=== PATIENT | female | born 1970 | race American Indian/Alaskan Native ===

== ENCOUNTER 2017-08-24 19:38 | Emergency (ER) | payer OTHER ==
[2017-08-24 19:59] VITALS: PULSE 67
[2017-08-24] MEDS ORDERED: Albuterol 0.083% Inhal Sol (2.5 mg/3 mL) UD IH STA (20:24)
--- NOTE | 2017-08-24 20:26 | C.PDOC ---
History Of Present Illness 47 yo female w/o significant PMHx, smoker, come in for evaluation of itchy eyes , post-nasal drip, dry cough " lungs irritation" gradually developed for past 2 days ' after was exposed to fiberglass from my mattress when I took of cover to clean". Pt sts, inhaled some fiberglass and since then developed above symptoms. Otherwise, pt denies fever, chills headache, dizziness, eye discharges or blurry vision, CP, SOB, dyspnea, wheezing, abd. pain, N/V. Ambulate to Ed for evaluation, not in any apparent distress. Time Seen by Provider: 08/24/17 20:02 Chief Complaint (Nursing): Medical Clearance Past Medical History Vital Signs: Last Vital Signs Temp 98.5 F 08/24/17 19:55 Pulse 67 08/24/17 19:55 Resp 20 08/24/17 19:55 BP 130/83 08/24/17 19:55 Pulse Ox 100 08/24/17 21:01 Surgical History: No Surg Hx Family History: States: No Known Family Hx - Social History Hx Tobacco Use: Yes Hx Alcohol Use: No Hx Substance Use: No - Immunization History Hx Tetanus Toxoid Vaccination: No Hx Influenza Vaccination: No Hx Pneumococcal Vaccination: No Physical Exam - Physical Exam Appears: Well, Non-toxic, No Acute Distress Skin: Normal Color, Warm, No Rash Head: Normacephalic Eye(s): bilateral: PERRL, EOMI (o pain or limitation on extraocular movement B/L ), Other (no conjunctival injection or periorbital edema.) Ear(s): Bilateral: Normal Nose: No Flaring, No Discharge Oral Mucosa: Moist Tongue: No Swelling Lips: No Swelling Throat: No Drooling Neck: Trachea Midline, Supple Chest: Symmetrical Cardiovascular: Rhythm Regular Respiratory: No Decreased Breath Sounds, No Accessory Muscle Use, No Rales, No Rhonchi, No Stridor, No Wheezing Gastrointestinal/Abdominal: Soft Extremity: Normal ROM, No Deformity, No Swelling Neurological/Psych: Oriented x3, Normal Speech ED Course And Treatment O2 Sat by Pulse Oximetry: 100 Pulse Ox Interpretation: Normal - Radiology CXR: Interpreted by Me, Viewed By Me CXR Interpretation: Yes: Infiltrates (?RLL) Progress Note: On re-evaluation, pt is afebrile, hemodynamicaly stable. Non- toxic. Ambulatory in Ed with stable gait. PulsEOx 100% RA ENT: no acute finidngs. uvula midline, no edema. neck: Supple, (-) JVD. Lungs: CTA B/L, BS equal B/L. Abd: benign. Neuorlogicaly intact. CXR review (+)?RLL infiltrate. Pt advised. ref. to f/u with PMD, Pulm in 2-3 days for re-eval. return to ED if any worsening or new changes. Disposition Counseled Patient/Family Regarding: Studies Performed, Diagnosis, Need For Followup - Disposition Referrals: Ajit Cardona MD [Medical Doctor] - Disposition: HOME/ ROUTINE Disposition Time: 21:01 Condition: STABLE Additional Instructions: Take medication as prescribed Follow up with PMD in 2-3 days for re-evaluation. return to ED if any worsening or new changes. Prescriptions: Albuterol HFA [Ventolin HFA 90 mcg/actuation (8 g)] 1 puff IH Q6 #1 inhaler Azithromycin [Zithromax] 250 mg PO DAILY #4 tab Prednisone [Deltasone] 40 mg PO DAILY #6 tablet Instructions: Asthma, Adult (DC), Acute Bronchitis Forms: [facility] ([place]) - Clinical Impression Clinical Impression: Asthmatic bronchitis
[2017-08-24] MEDS ORDERED: Albuterol 0.083% Inhal Sol (2.5 mg/3 mL) UD ONE (21:01)
[2017-08-24 21:50] VITALS: BP 117/76; RESP 16; TEMP 98.8; O2SAT 96
--- NOTE | 2017-08-25 08:46 | RAD ---
Chest x-ray two views History: Cough. Comparison: None available. Findings: No focal infiltrate or effusion. Bibasilar breast and nipple shadows. Heart size within normal limits. On the initial sequence, spiral shaped radiopaque densities projecting over the bilateral upper deven thoraces are likely external as the are not present on the repeat study. Impression: No focal infiltrate or effusion.
== END 2017-08-24 21:50 | disposition home or self-care (01) ==
LOC: C.ER 19:38 → MERGE 19:38 → C.ER 21:50
DX: J45.909 Unspecified asthma, uncomplicated (principal); Z72.0 Tobacco use